=== PATIENT | female | born 1970 | race Caucasian/White ===

== ENCOUNTER 2017-02-05 08:35 | Emergency (ER) | payer MEDICAID, OTHER ==
[~2017-02-05] VITALS: Ht 160 cm; Wt 67.1 kg
[2017-02-05 08:52] VITALS: BP 124/82
[2017-02-05] MEDS ORDERED: Tylenol #3 tab (300mg/30mg) ORAL ONE (09:15)
[2017-02-05] MEDS ORDERED: guaiFENesin DM 100mg/5ml ORAL PRN (09:15)
[2017-02-05] MEDS ORDERED: COUGH SYRUP DM237 ML PO (09:33)
[2017-02-05] MEDS ORDERED: ACETAMINOPHEN-1 EAC1 ORAL (09:33)
[2017-02-05] MEDS ORDERED: AZITHROMYCIN250 MG ORAL (09:33)
[2017-02-05 09:37] VITALS: BP 124/82
--- NOTE | 2017-02-05 09:51 | Diagnostic Imaging Report ---
Indication: Dyspnea Comparison: None A single view chest radiograph was obtained. Findings: Heart size is normal. There is parenchymal opacification at the left lung base which may be due to pleural effusion with associated atelectasis or pneumonia. Pulmonary vascularity and interstitium are within normal limits. The bones are unremarkable. Impression: Suspect left pleural effusion with left basilar atelectasis versus pneumonia
--- NOTE | 2017-02-05 10:47 | Emergency Room Report ---
History of Present Illness General Chief Complaint: Flu Like Symptoms Source: Patient Present Illness HPI [id number] [employer] patient with 1 week of dry cough, fever/chills. Non smoker No asthma, COPD, CHF history No sick contacts OTC [place] at night No improvement Allergies: Coded Allergies: No Known Allergies (Unverified , 02/05/17) Patient History Past Medical History: none Past Surgical History: none Pertinent Family History: none Social History: Denies: alcohol use, drug use, smoking Now: No Immunizations: UTD Reviewed Nursing Documentation: PMH: Agreed, PSxH: Agreed Nursing Documentation-PMH Past Medical History: No Stated History Review of Systems All Other Systems: negative except mentioned in HPI Physical Exam Vital Signs Date Time Temp Pulse Resp B/P Pulse Ox O2 Delivery O2 Flow Rate FiO2 02/05/17 08:43 99.7 101 15 121/80 96 Room Air Sp02 EP Interpretation: reviewed, normal General Appearance: normal inspection, well appearing, no apparent distress, alert, GCS 15, non-toxic Head: normocephalic, atraumatic Eyes: bilateral eye EOMI, bilateral eye PERRL ENT: normal ENT inspection, hearing grossly normal, normal voice Neck: normal inspection, full range of motion, supple, no bony tend Respiratory: no respiratory distress, no accessory muscle use, speaking full sentences, other - Rhonci to left side of lung Cardiovascular #1: regular rate, rhythm, no edema Gastrointestinal: normal inspection, normal bowel sounds, non tender, soft, no guarding, no hernia Genitourinary: no CVA tenderness Musculoskeletal: normal inspection, back normal, normal range of motion, Constantine' s Sign negative Neurologic: normal inspection, alert, oriented x3, responsive, supervisor advice III-XII nml as tested, motor strength/tone normal, speech normal Psychiatric: normal inspection, judgement/insight normal, mood/affect normal Skin: normal inspection Medical Decision Making Diagnostic Impression: Primary Impression: Community acquired pneumonia ER Course Cough, fever/chills for 1 week - VSS. Afebrile - Clinical PNA on exam - CXR with ?PNA on left side Rx Zpack, supportive tx for CAP Close PMD followup Chest X-Ray Diagnostic Results Chest X-Ray Diagnostic Results : Chest X-Ray Ordered: Yes # of Views/Limited/Complete: 1 View EP Interpretation: Yes Interpretation: no effusion, no pneumothorax, no acute cardiopulmonary disease, other - left sided infiltrate Indication: Shortness of Breath Impression: Other - PNA Interpreting ER Provider: Electronically signed by DR Castañeda Last Vital Signs Date Time Temp Pulse Resp B/P Pulse Ox O2 Delivery O2 Flow Rate FiO2 02/05/17 09:37 99.5 98 17 124/82 97 Room Air Status: improved Disposition: HOME, SELF-CARE Condition: Improved Scripts Guaifenesin/Dextromethorphan (COUGH SYRUP DM) 237 Ml Syrup 237 ML PO TID for For Cough for 7 Days, #1 UNIT Prov: YAIR CASTAÑEDA M.D. 02/05/17 Acetaminophen With Codeine (T#3) (TYLENOL #3 TAB*) Y Tab 1 TAB ORAL QHS Y for For Cough for 7 Days, #20 TAB Prov: YAIR CASTAÑEDA M.D. 02/05/17 Azithromycin* (ZITHROMAX*) 250 Mg Tablet 250 MG ORAL DAILY for 5 Days, #6 TAB 0 Refills Take two tablets by mouth today, then take one tablet by mouth daily for four days Prov: YAIR CASTAÑEDA M.D. 02/05/17 Patient Instructions: Community-Acquired Pneumonia, Adult, [id number] Additional Instructions: - Take all antibiotics as prescribed until finished - Take Tylenol with codeine as needed, at night, for cough/rest - Can use cough syrup during the day as well - Follow up with primary care doctor in 2-3 days YAIR CASTAÑEDA M.D. Feb 05, 2017 10:47
== END 2017-02-05 09:37 | disposition home or self-care (01) ==
LOC: EMR 09:25
DX: J18.9 Pneumonia, unspecified organism (principal)
CPT/HCPCS: 71010; 99284